=== PATIENT | male | born 1975 | race Caucasian/White ===

== ENCOUNTER 2017-05-18 16:48 | Emergency (ER) | payer OTHER ==
[2017-05-18] MEDS: levETIRAcetam 1,000 MG in IV DEXTROSE 5% 100 ML IV (18:08)
== END 2017-05-18 19:15 | disposition home or self-care (01) ==
LOC: ER 16:48
DX: G40.909 Epilepsy, unspecified, not intractable, without status epilepticus (principal)
CPT/HCPCS: 96365; 99284-25; J1953